=== PATIENT | female | born 1955 | race Caucasian/White ===

== ENCOUNTER 2016-06-28 18:45 | Inpatient (IN) | payer OTHER ==
--- NOTE | ~2016-06-28 | CT71 ---
[facility] A Service of [facility] & [facility] RADIOLOGY TEXT RESULTS PATIENT: BARB NORTON LOCATION: [facility] 326 : 53 UNIT #: [id number] AGE: [address]: Calos Mendes MD SEX: F ORDER DR: [id number] [facility] [address] [place], [place] [address] [id number] MR#: [id number] Acc #: [id number] NAME: BARB NORTON. : 1955 SEX: F STUDY DATE/TIME: 06/29/2016 02:07 UNIT: [address] ROOM: [facility] STUDY DESCRIPTION: CT Head Wo Contrast Attending Physician: Calos Mendes M.D. Ordering Physician: Se Chaudhari M.D. Primary Care Physician: Cedrick rBantley M.D. MEDICAL IMAGING REPORT This report is preliminary unless electronic signature is present EXAM Head CT, 06/29 0207 hours INDICATIONS Ataxia with left side weakness today. History of alcohol abuse. FINDINGS Axial images were obtained from the base to the vertex without contrast. No comparison. This CT exam was performed with one or more of the following radiation dose reduction techniques: Automatic exposure control, adjustment of mA and/or kV according to patient size, and iterative reconstruction. There is opacification of the left sphenoid sinus with a fluid level as well as the right maxillary sinus, compatible with acute sinusitis. Atherosclerotic calcifications are present within the carotid siphons. If there is an old left zygomatic arch fracture. There are no acute skull fractures. There is generalized atrophy. Ventricular size and configuration are within normal limits. No acute infarct or hemorrhage is seen. There are no masses. Chronic small vessel ischemic changes are present in the white matter. IMPRESSION 1. No acute findings in the brain. There is atrophy with chronic small vessel ischemic disease in the white matter. 2. Acute right maxillary and left sphenoid sinusitis. Dictated by... Kevin Holt Jr., M.D. THIS IS AN ELECTRONICALLY VERIFIED REPORT Kevin Holt Jr., M.D. at 06/29/2016 5:36 AM [facility] A Service of [facility] & [facility] RADIOLOGY TEXT RESULTS PATIENT: BARB NORTON LOCATION: [facility] 326-01 : 53 UNIT #: [id number] AGE: [address]: Calos Mendes MD SEX: F ORDER DR: ZOE/maximiliano TD: 06/29/2016 03:53 JOB #: [id number] MEDICAL IMAGING REPORT Page 1 of 1 COPY
--- NOTE | ~2016-06-28 | CR150 ---
[facility] A Service of [facility] & [facility] RADIOLOGY TEXT RESULTS PATIENT: BARB NORTON LOCATION: [facility] 326 : 53 UNIT #: [id number] AGE: [address]: Calos Mendes MD SEX: F ORDER DR: [id number] [facility] [address]. [place], [place] [address] [id number] MR#: [id number] Acc #: [id number] NAME: BARB NORTON. : 1955 SEX: F STUDY DATE/TIME: 06/29/2016 02:12 UNIT: [address] ROOM: [facility] STUDY DESCRIPTION: CR Hip Min 2 Views Lt Attending Physician: Calos Mendes M.D. Ordering Physician: Se Chaudhari M.D. Primary Care Physician: Cedrick Brantley M.D. MEDICAL IMAGING REPORT This report is preliminary unless electronic signature is present EXAM Left hip and pelvis, 06/29 at 02:12 INDICATIONS Ataxia and weakness. Left hip gave out today. FINDINGS AP pelvis was obtained in addition to a frog-leg left hip. No fracture or malalignment is seen. The femoral heads are normal without evidence of osteonecrosis. IMPRESSION Negative pelvis and left hip. Dictated by... Kevin Holt Jr., M.D. THIS IS AN ELECTRONICALLY VERIFIED REPORT Kevin Holt Jr., M.D. at 06/29/2016 5:36 AM ELYSSAK/maximiliano TD: 06/29/2016 03:59 JOB #: [id number] MEDICAL IMAGING REPORT Page 1 of 1 COPY
--- NOTE | ~2016-06-28 | DS ---
Unit #: [id number] #: [id number] Patient: BARB NORTON 198877 [address] [place], [place] [address] [id number] MR#: [id number] NAME: BARB NORTON. ROOM: [facility] Age: 60 Sex: F Admission Date: 06/29/2016 : 1955 Discharge Date: 06/29/2016 Attending Physician: Calos Mendes M.D. Primary Care Physician: Cedrick Brantley M.D. DISCHARGE SUMMARY SHORT STAY SUMMARY DISCHARGE DIAGNOSES 1. Alcoholic intoxication. 2. Left hip pain, status post negative workup. 3. Chronic obstructive pulmonary disease. 4. Hypertension. 5. Depression. CONSULTANTS PT/OT evaluation. Suggested patient is okay to go home with the walker. HISTORY OF PRESENT ILLNESS AND HOSPITAL COURSE The patient is a 60-year-old female patient of Dr. Brantley who apparently went to [facility] emergency room with some complaints of the difficulty of ambulating. Initial evaluation found patient with alcohol levels of 253 and patient was admitted. patient also had the CT of the head performed which was negative. She this morning complained of some left hip pain and x-ray is unremarkable as well. She had the PT/OT evaluation and she is okay to go home with a walker. The patient currently denies any other complaints. She is the one with the history of COPD and hypertension. She denies any daily drinking. She tells me that she was drinking some beer yesterday. Again, denies any active problems currently. Denies any chest pain, headache, dizziness, denies any fever, chills, nausea, vomiting diarrhea or abdominal pain. Again, had some episode of hip pain which since then resolved. REVIEW OF SYSTEMS Twelve-point review of systems on this patient is basically negative except as above. PAST MEDICAL HISTORY Significant for: 1. COPD. 2. Hypertension. 3. Depression. PAST SURGICAL HISTORY 1. Tubal ligation. 2. Bilateral cataract surgery. HOME MEDICATIONS Unit #: [id number] #: [id number] Patient: BARB NORTON 1. Ventolin two puffs inhaler q.i.d. 2. Celexa 20 mg daily. 3. Desyrel 100 mg nightly. 4. Zofran p.r.n. for nausea. 5. Zyrtec 10 mg daily. 6. Detrol LA 4 mg daily. 7. Norvasc 10 mg daily. 8. Ellipta inhaler daily. 9. Catapres 0.2 mg t.i.d. 10. Naprosyn 500 mg b.i.d. 11. Omeprazole 20 mg daily. 12. Calcium with vitamin D daily. 13. Folic acid 1 mg daily. In the hospital, the patient was also maintained on CIWA protocol with some Ativan, multivitamins and thiamine. ALLERGIES No known drug allergies. SOCIAL HISTORY Denies daily drinking. Denies any illicit drugs. Still continues to smoke. FAMILY HISTORY Unremarkable. PHYSICAL EXAMINATION VITAL SIGNS: BP 136/89, heart rate 66, respirations 18, temperature 97.9. GENERAL: The patient is 60-year-old female in no acute distress. HEENT: Head is atraumatic. Pupils equal, round, reactive to light and accommodation. Extraocular muscles are intact. Oropharynx is clear. NECK: Supple. No mass, no JVD, no bruits. LUNGS: Diminished bilaterally. HEART: S1, S2. No murmurs. ABDOMEN: Soft, nontender, nondistended. LOWER EXTREMITIES: Without any cyanosis, clubbing, or edema. NEUROLOGIC: The patient is grossly intact without any focal deficits. DIAGNOSTIC STUDIES LABORATORY: Sodium 133 this morning, the rest of the chemistry is unremarkable. White count 8.3, hemoglobin 13.1, hematocrit 38.2. ASSESSMENT AND PLAN 1. Alcoholic intoxication, currently sober, was maintained on CIWA protocol. Will discharge on some Librium for 5 days with tapering. Also thiamine, folate and multivitamins. 2. Left hip pain, status post negative x-ray. Going home with the walker. Outpatient followup with primary care physician for further evaluation. 3. History of COPD at the baseline. 4. History of depression. Continue home medications. 5. Hypertension, stable. Continue home medications. 6. Tobacco use. Patient was counseled on the importance of quitting tobacco. Defers patch for now. DISCHARGE MEDICATIONS As above. Will continue home medications, plus: Unit #: [id number] #: [id number] Patient: BARB NORTON 1. Librium for 5 days. 2. Thiamine 100 mg daily. 3. Multivitamins one tablet daily. FOLLOWUP Dr. Brantley in the next 2-3 days. Dictated by... Colleen Diaz/mervin TD: 06/29/2016 20:47 JOB #: [id number] DISCHARGE SUMMARY Page 1 of 1 X Jamar Hartley MD X DISCHARGE SUMMARY
[~2016-06-28 18:45] MED LIST: ALBUTEROL17 GM INH; ALPRAZOLAM PO; AZOR; AZOR 10-40 MG1 UDTAB PO; CALCIUM + D 6001 TA1 PO; CATAPRES0.1 MG PO; CELEXA20 MG PO; DESYREL100 MG PO; DUONEB 2.5-0.5 M3 ML IH; FLOXIN OTIC5 M1 OD; LEXAPRO PO; MACROBID100 M1 PO; NAPROSYN500 MG PO; NICOTINE TRANSD21 MG ID; NORCO1 TAB 10/3 PO; NORVASC10 MG PO; OMEPRAZOLE20 M1 PO; PENICILLIN PO; PERCOCET5/325 PO; PREDNISONE PO; SINGULAIR PO
[2016-06-28] MEDS ORDERED: FOLIC ACID PO (18:55)
[2016-06-28] MEDS ORDERED: ZYRTEC10 M1 PO (18:56)
[2016-06-28 20:33] LABS: CALCIUM SERUM 9.1 mg/dL (8.4-10.2); CREATININE SERUM 0.6 mg/dL (0.6-1.4); GLOM FILT RATE Estimated 97.7 mL/min (>60); MAGNESIUM 2.1 mg/dL (1.6-3.0); PHOSPHOROUS 3.9 mg/dL (2.5-4.6); POTASSIUM 4.2 mmol/L (3.5-5.1)
[2016-06-28 20:35] LABS: URINE SOURCE CLEAN CATCH
[2016-06-28 20:38] LABS: URINE APPEARANCE CLEAR; URINE BILIRUBIN NEG (NEG); URINE BLOOD TRACE-LYSED (NEG); URINE GLUCOSE NEG (NORM); URINE KETONE NEG (NEG); URINE LEUKOCYTE ESTERASE NEG (NEG); URINE NITRATE NEG (NEG); URINE PH 6.5 (5-8); URINE PROTEIN NEG (NEG); URINE SPECIFIC GRAVITY <=1.005 (1.003-1.035); URINE UROBILINOGEN 0.2 MG/DL (NORM)
[2016-06-28 20:44] LABS: MICRO INDICATED? YES; URINE COLOR STRAW
[2016-06-28 20:45] LABS: CULTURE INDICATED? NO; URINE BACTERIA NEG (NEG); URINE RBC 0-2 /[HPF] (0-2); URINE SQUAMOUS EPITHELIAL CELL FEW /[HPF]; URINE WBC 0-2 /[HPF] (0-5)
[2016-06-28 20:48] LABS: AMPHETAMINE NEG (NEG); BARBITURATES NEG (NEG); BENZODIAZEPINES NEG (NEG); COCAINE NEG (NEG); MARIJUANA NEG (NEG); OPIATES NEG (NEG); TRICYCLIC ANTIDEPRESSANTS NEG (NEG); U METHADONE NEG (NEG)
[2016-06-29] MEDS ORDERED: CALCIUM 600 +1 EAC2 PO (01:29)
[2016-06-29] MEDS ORDERED: DETROL LA2 MG PO (01:31)
[2016-06-29] MEDS ORDERED: ZOFRAN PO (01:32)
[2016-06-29] MEDS ORDERED: BREO ELLIPTA 11 EACH INH (01:34)
[2016-06-29 03:15] LABS: SODIUM URINE RANDOM 78 mmol/L
[2016-06-29 03:42] LABS: OSMOLALITY,URINE 237 mOsmo/kg (250-900)
[2016-06-29 09:25] LABS: HEMATOCRIT 38.2 % (35.0-45.0); HEMOGLOBIN 13.1 gm/dL (12.0-16.0); MEAN CELL VOLUME 97.3 FL (83-96); MEAN CORPUSCULAR HEMOGLOBIN 33.4 PG (28-34); MEAN CORPUSCULAR HGB CONC 34.3 g/dL (30-36); MEAN PLATELET VOLUME 6.9 FL (6.5-11.5); RED BLOOD COUNT 3.93 X10e (3.90-5.30); RED CELL DISTRIBUTION WIDTH 12.9 % (11.0-15.5); WHITE BLOOD COUNT 8.3 X10e3 (4.0-10.5)
[2016-06-29 13:47] LABS: BILIRUBIN,TOTAL 0.6 mg/dL (0.2-2.0); BUN/CREATININE RATIO 11.25; CALCIUM SERUM 8.8 mg/dL (8.4-10.2); CREATININE SERUM 0.8 mg/dL (0.6-1.4); GLOM FILT RATE Estimated 79.1 mL/min (>60); PROTEIN TOTAL SERUM 6.3 g/dL (6.0-8.3)
[2016-06-29] MEDS ORDERED: THIAMINE HCL100 M1 PO (19:36)
[2016-06-29] MEDS ORDERED: MULTI-VITAMIN1 EAC1 PO (19:37)
[2016-06-29] MEDS ORDERED: LIBRIUM25 M1 PO (19:43)
== END 2016-06-29 21:10 | disposition home or self-care (01) | DRG 897 ==
LOC: SED 18:45 → C3A PCU 21:53 → SEDOF 21:53 → C3A PCU 06-29 00:54 → SEDOF 06-29 00:54 → C3A PCU 06-29 01:45 → SEDOF 06-29 01:45 → C3A PCU 06-29 21:10
PROVIDERS: Emergency Medicine; Internal Medicine
DX: F10.129 Alcohol abuse with intoxication, unspecified (principal); I10 Essential (primary) hypertension; Y90.8 Blood alcohol level of 240 mg/100 ml or more; J44.9 Chronic obstructive pulmonary disease, unspecified; F32.9 Major depressive disorder, single episode, unspecified; M25.552 Pain in left hip; Z98.51 Tubal ligation status; Z98.42 Cataract extraction status, left eye; Z98.41 Cataract extraction status, right eye; F17.210 Nicotine dependence, cigarettes, uncomplicated
CPT/HCPCS: 36415; 70450; 73502; 80048; 80053; 80307; 81003; 83735; 83930; 83935; 84100; 84300; 84439; 84443; 85027; 86592; 94640; 94664; 94760; 96374; 96375; 97116; 97163; 99285; G0480; J2405; J3411; J7042